=== PATIENT | male | born 1960 | race Caucasian/White ===

== ENCOUNTER 2018-04-25 13:03 | Emergency (ER) | payer SELFPAY ==
[~2018-04-25] VITALS: Ht 195.6 cm; Wt 108.0 kg
[2018-04-25] MEDS ORDERED: PERCOCET 5/31 TABLET PO (15:44)
[2018-04-25 16:09] VITALS: BP 134/86
[2018-04-29] MEDS ORDERED: NORVASC5 MG PO (13:16)
[2018-04-29] MEDS ORDERED: OMEPRAZOLE40 M1 PO (13:16)
== END 2018-04-25 16:10 | disposition home or self-care (01) ==
LOC: EME 13:03
PROC: 2W3RX1Z Immobilization of Left Lower Leg using Splint (ICD-10-PCS; principal; 2018-04-25)
DX: S82.832A Other fracture of upper and lower end of left fibula, initial encounter for closed fracture (principal); V80.010A Animal-rider injured by fall from or being thrown from horse in noncollision accident, initial encounter; Y93.52 Activity, horseback riding; I10 Essential (primary) hypertension
CPT/HCPCS: 73610; 99281; 99284

== ENCOUNTER → 2018-04-28 | Outpatient (CLI) | payer SELFPAY ==
[~2018-04-28] MED LIST: NORVASC5 MG PO; OMEPRAZOLE40 M1 PO; PERCOCET 5/31 TABLET PO
== END | disposition home or self-care (01) ==
LOC: CDC 10:33
DX: Z01.810 Encounter for preprocedural cardiovascular examination (principal); M25.571 Pain in right ankle and joints of right foot; M25.572 Pain in left ankle and joints of left foot; M19.171 Post-traumatic osteoarthritis, right ankle and foot; M19.172 Post-traumatic osteoarthritis, left ankle and foot; R26.2 Difficulty in walking, not elsewhere classified; S82.432A Displaced oblique fracture of shaft of left fibula, initial encounter for closed fracture; I45.10 Unspecified right bundle-branch block
CPT/HCPCS: 93000

== ENCOUNTER 2018-05-01 10:56 | Day surgery (SDC) | payer SELFPAY ==
[~2018-05-01] VITALS: Ht 182.9 cm; Wt 108.9 kg
[2018-05-01 11:29] VITALS: BP 125/82
[2018-05-01 16:55] VITALS: BP 168/87
[2018-05-01 17:32] VITALS: BP 143/82
== END 2018-05-01 17:40 | disposition home or self-care (01) ==
LOC: SDC 10:56
DX: S82.842A Displaced bimalleolar fracture of left lower leg, initial encounter for closed fracture (principal); W55.19XA Other contact with horse, initial encounter; I10 Essential (primary) hypertension; G47.30 Sleep apnea, unspecified; I45.10 Unspecified right bundle-branch block; M19.172 Post-traumatic osteoarthritis, left ankle and foot
CPT/HCPCS: 73610; 76000; C1713; J0690; J1100; J2250; J2405; J2710; J2795; J3010; J7643; S0020